=== PATIENT | female | born 1965 | race Caucasian/White ===

== ENCOUNTER 2019-11-24 21:40 | Emergency (ER) | payer OTHER ==
[~2019-11-24] VITALS: Ht 157.5 cm; Wt 75.3 kg
[2019-11-24 21:47] VITALS: Ht 157.5 cm; Wt 75.3 kg
[2019-11-24 22:49] VITALS: BP 132/77
== END 2019-11-24 22:49 | disposition home or self-care (01) ==
LOC: ED 21:40
DX: K08.89 Other specified disorders of teeth and supporting structures (principal)
CPT/HCPCS: J3490

== ENCOUNTER 2020-05-08 21:35 | Emergency (ER) | payer OTHER, SELFPAY ==
[~2020-05-08] VITALS: Ht 154.9 cm; Wt 68.0 kg
[2020-05-08 21:45] VITALS: Ht 154.9 cm; Wt 68.0 kg
[2020-05-08 23:43] VITALS: BP 146/65
== END 2020-05-08 23:44 | disposition home or self-care (01) ==
LOC: ED 21:35
DX: J45.901 Unspecified asthma with (acute) exacerbation (principal); I10 Essential (primary) hypertension; B34.9 Viral infection, unspecified; Z20.828 Contact with and (suspected) exposure to other viral communicable diseases
CPT/HCPCS: J7512; U0003